=== PATIENT | female | born 1985 | race African-American/Black ===

== ENCOUNTER 2016-05-07 00:51 | Emergency (ER) | payer SELFPAY ==
[2016-05-07] MEDS ORDERED: LIDOCAINE 1%/EPINEPHRINE INJ 20 ML VIAL INJ ONE (01:06)
[2016-05-07 01:10] VITALS: BP 140/76
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
== END 2016-05-07 01:36 | disposition home or self-care (01) ==
LOC: ER 00:51
DX: S51.812A Laceration without foreign body of left forearm, initial encounter (principal); S71.112A Laceration without foreign body, left thigh, initial encounter; W25.XXXA Contact with sharp glass, initial encounter; Y92.59 Other trade areas as the place of occurrence of the external cause; Z53.29 Procedure and treatment not carried out because of patient's decision for other reasons
CPT/HCPCS: 99283; J3490

== ENCOUNTER 2016-05-07 10:23 | Emergency (ER) | payer BC ==
[2016-05-07] MEDS ORDERED: LIDOCAINE 1% INJ-PF (10 MG/ML) 30 ML SDV INJ ONE (10:31)
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
[2016-05-07] MEDS ORDERED: ONDANSETRON 4 MG TAB.RAPDIS PO ONE (11:02)
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
[2016-05-07 18:31] VITALS: BP 123/73
== END 2016-05-07 12:40 | disposition home or self-care (01) ==
LOC: ER 10:23
PROC: 0HQEXZZ Repair Left Lower Arm Skin, External Approach (ICD-10-PCS; principal; 2016-05-07)
DX: S71.112A Laceration without foreign body, left thigh, initial encounter (principal); S51.812A Laceration without foreign body of left forearm, initial encounter; R03.0 Elevated blood-pressure reading, without diagnosis of hypertension; W01.110A Fall on same level from slipping, tripping and stumbling with subsequent striking against sharp glass, initial encounter; Y92.89 Other specified places as the place of occurrence of the external cause; Y99.8 Other external cause status
CPT/HCPCS: 99283; 73090; 12001; S0119